=== PATIENT | female | born 1960 | race Caucasian/White ===

== ENCOUNTER 2016-11-28 06:39 | Day surgery (SDC) | payer BC ==
[~2016-11-28] VITALS: Ht 162.6 cm; Wt 60.1 kg
[~2016-11-28 06:39] MED LIST: AMO500 PO; FER325 PO; FURO-110 PO; GLYB1.252 PO; POTA10TA15 PO
[2016-11-28 06:59] VITALS: Ht 162.6 cm; Wt 60.1 kg
[2016-11-28] MEDS ORDERED: LIDOCAINE 2% (SDV) 5 ML INJ ONE (07:33)
[2016-11-28] MEDS ORDERED: PROPOFOL 40 ML ONE (07:33)
[2016-11-28] MEDS ORDERED: SITA50TA2 PO (07:38)
[2016-11-28] MEDS ORDERED: FURO20TA3 PO (07:38)
[2016-11-28] MEDS ORDERED: PROP20TA4 PO (07:38)
[2016-11-28 07:42] VITALS: BP 147/69; PULSE 68; RESP 16
[2016-11-28] MEDS ORDERED: PHENYLephrine (100 MCG/ML) 5ML SYG ONE (08:12)
[2016-11-28] MEDS ORDERED: CIPROFLOXACIN 400MG/D5W 200 ML ONE (08:13)
[2016-11-28] MEDS ORDERED: DIPHENHYDRAMINE 50 MG INJ ONE (08:31)
[2016-11-28] MEDS ORDERED: CEFAZOLIN 1 GM/50 ML (PMX) 50 ML IVPB ONE (08:31)
[2016-11-28 09:10] VITALS: BP 149/70; RESP 20
--- NOTE | 2016-11-28 17:02 | GILP ---
DATE OF PROCEDURE: PROCEDURE: EGD with banding. INDICATION: A 56-year-old female undergoing this procedure for the evaluation of varicose veins and possible banding. The risks of the procedure, related and unrelated complications, anesthetic risk s, and alternatives were discussed and informed consent was obtained. DESCRIPTION OF PROCEDURE: The patient was brought to the GI lab, sedated by the anesthesiologist, a nd after optimum sedation the scope was passed with much ease into the esophagus. Patient had a lar ge gastric varicose vein, grade 4, identified, diffuse, with sign. Stomach mucosa revealed se reina gastritis. Duodenum, first and second part, was within normal limits. Retroversion was done. There was a gastric varicose vein which was extending from the esophagus, one such varicose vein maxwell ntified. The scope was straightened out and then removed, with good patient tolerance. was attached to the tip of the scope and right from the GE junction 5 columns of varicose veins were suc cessfully banded. The total number of bands used was 6. No bleeding was seen. The scope was remov ed, with good patient tolerance. IMPRESSION 1. Grade 4 esophageal varicose veins, with sign on 2 of them. 2. GOV1. 3. Successful banding of all varicose vein done. Six bands were used. 4. Severe gastritis. PLAN: Continue PPI. The patient needs rescoped after 3 months to make sure the varicose veins are completely obliterated. Dictated By: AGUILAR MUSA/OCTAVIANO Conf#: [id number] DID#: [id number] CC: JULIANNA SAMPSON MD;*[facility]*
== END 2016-11-28 12:26 | disposition home or self-care (01) ==
LOC: GIL 06:39
PROVIDERS: ATTEND Internal Medicine Gastroenterology
DX: I85.00 Esophageal varices without bleeding (principal); K29.70 Gastritis, unspecified, without bleeding; E11.9 Type 2 diabetes mellitus without complications
CPT/HCPCS: 43244; 82962; J0690; J0744; J1200; J2370; Z7610